=== PATIENT | female | born 1970 | race Caucasian/White ===

== ENCOUNTER 2021-06-21 08:02 | Emergency (ER) | payer OTHER, SELFPAY ==
--- NOTE | ~2021-06-21 | XR_ITS ---
EXAMINATION: XR chest 2V DATE: 06/21/2021 08:27 INDICATION: Cough, wheezing and shortness of breath TECHNIQUE: PA and lateral views of the chest were obtained. COMPARISON: None FINDINGS: The lungs are clear with no focal airspace opacities, pulmonary edema, pleural effusion or pneumothor ax. Normal variant azygos lobe and fissure. The cardiomediastinal silhouette is normal. Mild thoracic spondylosis. IMPRESSION: 1. No acute cardiopulmonary disease. Reviewed, dictated and finalized at location [facility] [employer]
[2021-06-21 08:10] VITALS: BP 172/88; PULSE 88; RESP 18; TEMP 37.1; O2SAT 98
--- NOTE | 2021-06-21 08:10 | ED.URI ---
HPI - URI/Sore Throat General Chief Complaint: Upper Respiratory Infection Stated Complaint: wheezing and congestion Time Seen by Provider: 06/21/21 08:10 Source: patient and RN notes reviewed History of Present Illness HPI Narrative: Patient is a 50-year-old female who presents the urgent care with complaints of feeling winded and short of breath with exertion . Patient states that she had these issues a few months ago and her doctor was working her up for . However patient tested positive for Covid on June 14 and states that it has worsened. Patient also reports of some wheezing when laying down. Patient states that her symptoms with Covid just felt like a sinus infection . And she has not been running any fevers and denies any nausea or vomiting in the last 48 hours. Patient has been taking Tylenol and ibuprofen [id number] as needed. Patient was vaccinated and also had a booster. No other acute complaints. No acute distress noted. Patient aware of the plan of care. Some parts of this dictation were generated by voice recognition software and may contain typographical and/or grammatical inaccuracies. Related Data Home Medications Medication Instructions Recorded Confirmed dicyclomine 20 mg PO BID 06/21/21 06/21/21 losartan 50 mg PO DAILY 06/21/21 06/21/21 pantoprazole 40 mg PO BID 06/21/21 06/21/21 rosuvastatin 40 mg PO DAILY 06/21/21 06/21/21 topiramate [Trokendi XR] 100 mg PO DAILY 06/21/21 06/21/21 Allergies Allergy/AdvReac Type Severity Reaction Status Date / Time No Known Allergies Allergy Verified 06/21/21 08:22 Review of Systems Review of Systems: CONSTITUTIONAL: Denies fever, chills, or sweats. EYES: Denies visual changes, redness, or discharge. ENT: Denies rhinorrhea, congestion, sore throat, or otalgia. CARDIOVASCULAR: Denies chest pain, palpitations, or edema. RESPIRATORY: Reports of shortness of breath and wheezing without cough GASTROINTESTINAL: Denies abdominal pain, nausea, vomiting, or diarrhea. GENITOURINARY: Denies dysuria or hematuria. SKIN: Denies rash or itching. MUSCULOSKELETAL: Denies back pain, joint pain, or myalgia. NEUROLOGIC: Denies headache, numbness, or weakness. All other systems reviewed are negative, except as documented in HPI. PMFSH Comments At the time of my signature, I reviewed and agree with the nursing past medical, surgical, social, and family history. There is no relevant family history pertinent to the patient complaint. Exam Narrative: GENERAL: This is a well-nourished, well-developed patient, in no apparent distress. HEAD: normocephalic, atraumatic. EYES: PERRL. Sclera clear/white. Vision is grossly intact. EARS: External ears normal, auditory canals clear and without drainage, TMs normal without perforation. Hearing grossly intact. NOSE: External nose normal with no obvious nasal discharge, nares without redness, no rhinorrhea. THROAT: Mucous membranes moist, posterior pharynx clear. Mild postnasal drainage NECK: Neck supple CARDIOVASCULAR: Regular rate and rhythm without murmurs, gallops, or rubs. RESPIRATORY: Clear to auscultation. Slightly diminished bibasilar SKIN: warm, intact with no suspicious lesions or rash, good texture and turgor. NEURO: awake, alert, and oriented to person, place and time. There were no obvious focal neurologic abnormalities. EXTREMITIES: No clubbing, cyanosis, or edema. Course Course Level of Care: Express Care Visit Vital Signs Vital signs: Vital Signs Temperature 98.7 F 06/21/21 08:10 Pulse Rate 88 06/21/21 08:10 Respiratory Rate 18 06/21/21 08:10 Blood Pressure 172/88 H 06/21/21 08:10 Pulse Oximetry 98 06/21/21 08:10 Temperature 98.7 F 06/21/21 08:10 Pulse Rate 88 06/21/21 08:10 Respiratory Rate 18 06/21/21 08:10 Blood Pressure 172/88 H 06/21/21 08:10 Pulse Oximetry 98 06/21/21 08:10 Reviewed-patient is informed that they may have pre-hypertension or hypertension based on a b
== END 2021-06-21 08:45 | disposition home or self-care (01) ==
PROVIDERS: Emergency Provider Nurse Practitioner Family; PCP Family Medicine
DX: R06.00 Dyspnea, unspecified (principal); U09.9 Post COVID-19 condition, unspecified; E78.00 Pure hypercholesterolemia, unspecified; I10 Essential (primary) hypertension; K21.9 Gastro-esophageal reflux disease without esophagitis
CPT/HCPCS: 71046; 99213; G0463